=== PATIENT | male | born 1990 ===

== ENCOUNTER → 2021-07-30 15:44 | Outpatient (BNVA) | payer OTHER, SELFPAY | PROVIDERS: Visit Provider Orthopaedic Surgery | DX: M54.50 Low back pain, unspecified (principal) | CPT/HCPCS: 72110 ==

== ENCOUNTER → 2022-10-14 19:02 | Outpatient (BNVA) | payer BC, SELFPAY | PROVIDERS: Visit Provider Emergency Medicine | DX: S89.91XA Unspecified injury of right lower leg, initial encounter (principal); X58.XXXA Exposure to other specified factors, initial encounter | CPT/HCPCS: 73562 ==

== ENCOUNTER → 2022-11-22 08:18 | Outpatient (BNVA) | payer BC, SELFPAY | PROVIDERS: Visit Provider Student in an Organized Health Care Education/Training Program | DX: Y04.0XXA Assault by unarmed brawl or fight, initial encounter (principal); S89.91XA Unspecified injury of right lower leg, initial encounter | CPT/HCPCS: 73560; 73565 ==

== ENCOUNTER 2023-03-01 14:41 | Outpatient (CLI) | payer BC, SELFPAY ==
--- NOTE | 2023-03-01 15:15 | MR_ITS ---
WS: [id number] MRI RIGHT KNEE NONCONTRAST TECHNIQUE: Axial PD, coronal PD fat sat, coronal PD, sagittal PD, and sagittal PD fat-sat images obta ined. CLINICAL INFORMATION: pain COMPARISON: None. FINDINGS: Distal quadriceps and patella tendons are intact. Normal ACL and PCL. Small amount of prepatellar and infrapatellar soft tissue edema. No acute appearing patellar fractures. Trace joint effusion. Tiny a mount of contusion in the anterior medial patella. Medial and lateral meniscus are normal in appearance. No acute appearing meniscal tears. Normal media l and lateral collateral ligaments. Normal popliteal fossa. MR/MR knee RT wo con* [id number] IMPRESSION: 1. Small amount of prepatellar and infrapatellar soft tissue edema with contus ion in the anterior medial patella. 2. Trace joint effusion. 3. ACL and PCL are intact. 4. Medial and lateral meniscus are intact. 5. Medial and lateral collateral ligaments appear intact. Outbridge grading: grade I: focal areas of hyperintensity with normal contour
== END 2023-03-01 14:42 | disposition home or self-care (01) ==
LOC: RAD 14:53
PROVIDERS: PCP Student in an Organized Health Care Education/Training Program; Visit Provider Student in an Organized Health Care Education/Training Program
DX: M25.561 Pain in right knee (principal); R60.0 Localized edema
CPT/HCPCS: 73721

== ENCOUNTER → 2023-04-01 16:56 | Outpatient (BNVA) | payer BC, SELFPAY | PROVIDERS: PCP Student in an Organized Health Care Education/Training Program; Visit Provider Nurse Practitioner Family | DX: S99.922A Unspecified injury of left foot, initial encounter (principal); W22.8XXA Striking against or struck by other objects, initial encounter | CPT/HCPCS: 73630 ==

== ENCOUNTER → 2024-06-05 10:02 | Outpatient (BNVA) | payer BC, SELFPAY | PROVIDERS: PCP Family Medicine; Visit Provider Family Medicine | DX: N52.9 Male erectile dysfunction, unspecified (principal); E66.3 Overweight | CPT/HCPCS: 80053; 80061; 83036; 84403; 84439; 84443; 85025 ==

== ENCOUNTER 2024-07-19 08:45 | Emergency (ER) | payer BC, OTHER, SELFPAY ==
[2024-07-19 08:56] VITALS: BP 123/83; PULSE 82; RESP 16; TEMP 36.9; O2SAT 93; BMI 28.5
[2024-07-19] MEDS: diphenhydrAMINE 50 mg/mL SDV 1mL IVP (09:13)
[2024-07-19] MEDS: ketorolac 30 mg/mL INJ IVP (09:13)
[2024-07-19 09:19] VITALS: BP 124/88; PULSE 79; RESP 16; O2SAT 95
[2024-07-19 09:19] LABS: Basophils % 0.6 %; Eosinophils # 0.2 10^3/uL (0.0-0.8); Eosinophils % 2.9 %; Lymphocytes # 1.7 10^3/uL (0.8-4.8); Lymphocytes % 33.3 %; Mean Corpuscular Hemoglobin 27.9 pg (27-33); Mean Corpuscular Volume 82.1 fl (82-101); Mean Platelet Volume 10.3 fL (7.4-10.4); Monocytes # 0.5 10^3/uL (0.2-0.9); Monocytes % 9.5 %; Neutrophils # 2.75 10^3/uL (1.8-7.7); Neutrophils % 53.5 %; Nucleated Red Blood Cells % 0 %; Platelet Count 264 10^3/cmm (157-399); Red Blood Count 5.85 10^6/uL (3.85-5.65); Red Cell Distribution Width 11.9 % (12.1-15.1); White Blood Count 5.14 10^3/uL (3.29-11.43)
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
[2024-07-19 09:36] LABS: Alanine Aminotransferase 53 U/L (0-41); Albumin Level 4.6 g/dL (3.5-5.2); Alkaline Phosphatase 96 U/L (40-130); Anion Gap 14.2 (5-19); Aspartate Amino Transferase 24 U/L (0-40); Blood Urea Nitrogen 21 mg/dL (6-20); Calcium 9.5 mg/dL (8.5-10.5); Carbon Dioxide 23 mmol/L (22-29); Chloride 106 mmol/L (98-107); Creatinine Clr Calc Pharmacy 115.4476; Globulin 2.6 g/dL (1.3-4.6); Glomerular Filtration Rate 77.6 mL/min (90-130); Glucose 101 mg/dL (65-115); Osmolality Calculated 291 mOsm/kg (285-295); Potassium 4.2 mmol/L (3.5-5.1); Sodium 139 mmol/L (136-145); Total Bilirubin 0.7 mg/dL (0.15-1.2); Total Protein 7.2 g/dL (6.6-8.7)
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
[2024-07-19 11:09] VITALS: BP 120/76; PULSE 72; RESP 16; O2SAT 98
--- NOTE | 2024-07-20 04:33 | DCPLANNER ---
Message sent to Neurology for follow up on concussion.
== END 2024-07-19 11:11 | disposition home or self-care (01) ==
PROVIDERS: Emergency Provider Family Medicine; PCP Family Medicine
DX: S06.0XAA Concussion with loss of consciousness status unknown, initial encounter (principal); Y04.2XXA Assault by strike against or bumped into by another person, initial encounter; Y93.F9 Activity, other caregiving; Y99.0 Civilian activity done for income or pay
CPT/HCPCS: 70450; 80053; 85025; 96374; 96375; 99285; J1200; J1885

== ENCOUNTER 2025-02-18 10:45 | Outpatient (CLI) | payer OTHER, SELFPAY ==
--- NOTE | 2025-02-18 10:47 | MR_ITS ---
WS: [id number] MRI BRAIN WITHOUT CONTRAST HISTORY: F07.81 - Postconcussional syndrome COMPARISON: CT head 07/19/2024 TECHNIQUE: Diffusion imaging, multiplanar T1, T2 and FLAIR imaging obtained. No evidence for acute infarct or hemorrhage. Smith-white matter differentiation is normal. No remote or acute infarcts are volume loss. Ventricles and extra-axial spaces are normal. No inferior displacement of cerebellar tonsils. The sella turcica and pituitary gland are unremarkable. Dural venous sinuses and [place] demonstrate no abnormality on this unenhanced studies. Paranasal sinuses: Small mucous retention cysts in the RIGHT maxillary sinus. No air-fluid levels. Mastoid air cells: Normal. Calvarium and scalp: Intact. MR/MR head wo con* [id number] IMPRESSION: 1. No acute intracranial hemorrhage or edema. No prior hemorrhage. 2. No hydrocephalus. 3. RIGHT maxillary sinus mucous retention cyst.
== END 2025-02-18 10:46 | disposition home or self-care (01) ==
PROVIDERS: PCP Family Medicine; Visit Provider Specialist
DX: M27.40 Unspecified cyst of jaw (principal); F07.81 Postconcussional syndrome
CPT/HCPCS: 70551

== ENCOUNTER → 2025-07-17 11:39 | Outpatient (BNVA) | payer BC, SELFPAY | PROVIDERS: PCP Family Medicine; Visit Provider Family Medicine | DX: R59.0 Localized enlarged lymph nodes (principal) | CPT/HCPCS: 80053; 85025 ==

== ENCOUNTER 2025-08-15 07:33 | Outpatient (CLI) | payer BC, SELFPAY ==
--- NOTE | 2025-08-15 07:45 | US_ITS ---
WS: [id number] Complete ABDOMINAL ULTRASOUND HISTORY: LUQ ttp COMPARISON: None available. Liver: 16.4 cm in length. Normal size liver and echogenicity. No bile duct dilatation or mass. Portal Vein: Normal hepatopetal flow with monophasic waveform. Gallbladder: Normally distended gallbladder. Small amount of debris or polyp in the gallbladder. Area of soft tissue measures 8 x 7 x 6 mm. No stones are identified. CBD: 0.4 cm Pancreas: Completely obscured by bowel gas. Right kidney: 10.4 cm x 4.8 x 4.5 cm. Cortex:1.3 cm. Normal size and echogenicity. No hydronephrosis or mass. Left kidney: 10.1 cm x 4.6 cm x 6.1 cm. Cortex: 1.3 cm. Normal size and echogenicity. No hydronephrosis or mass. Spleen: 12.1 cm. Normal size and echogenicity. Aorta and IVC: Unremarkable abdominal aorta and IVC. US/US abdomen complete* [id number] Impression: 1. Normal size liver. No intra paddock duct dilatation. 2. Tiny amount of sludge versus polyp in the gallbladder. No stones identified . 3. Normal common bile duct. 4. No renal obstruction.
--- NOTE | 2025-08-15 08:30 | US_ITS ---
WS: [id number] ULTRASOUND SOFT TISSUES bilateral axilla. HISTORY: bilateral axillary lymph nodes COMPARISON: None available. TECHNIQUE: 2-D and color Doppler imaging is submitted. Ultrasound is performed in the axial. No lymph nodes are identified today. Normal appearance of the axilla. No soft tissue masses. US/US soft tissue/extremity [id number] IMPRESSION: No axillary lymphadenopathy.
== END 2025-08-15 07:34 | disposition home or self-care (01) ==
LOC: RAD 07:35
PROVIDERS: PCP Family Medicine; Visit Provider Family Medicine
DX: R10.13 Epigastric pain (principal); R59.0 Localized enlarged lymph nodes; R93.3 Abnormal findings on diagnostic imaging of other parts of digestive tract
CPT/HCPCS: 76700; 76882